=== PATIENT | male | born 1970 | race Two or more races ===

== ENCOUNTER 2025-05-16 15:12 | Inpatient (IN) | payer MEDICAID ==
[~2025-05-16] VITALS: Ht 160 cm; Wt 92.1 kg
--- NOTE | 2025-05-16 16:47 | ED.PDOC ---
History of Present Illness HPI Comments 55-year-old male presents to the ER with prior medical history of hypertension(has not taking medications for one month) chief complaint of headache. Patient reports on having a occipital portion headache associated with palpitations Denies any other symptoms at this time. Denies chills, fever, N/V/D, SOB, CP. No other associated symptoms, modifiers, recent injuries or sick contacts present at this time. Chief Complaint: Headache Time Seen by MD: 16:45 Reviewed Notes: Nurses Notes, Medications, Allergies Allergies: Coded Allergies: NO KNOWN ALLERGIES (Unverified , 05/16/25) Information Source: Patient Mode of Arrival: Ambulatory Severity: Moderate Timing: Came on: Suddenly Duration: Since onset Prehospital treatment: None Past Medical History PAST MEDICAL HISTORY: HTN (Has not taken his medications for the past month) Surgical History: Denies all surgeries Family History Family History: Reviewed,noncontributory to illness, Unknown Social History Smoker: Non-Smoker Alcohol: Denies ETOH Use Drugs: Denies Drug Use Lives In: Home Constitutional: denies: chills, diaphoresis, fatigue, fever, malaise, sweats, weakness, others EENTM: denies: blurred vision, double vision, ear bleeding, ear discharge, ear drainage, ear pain, ear ringing, eye pain, eye redness, hearing loss, mouth pain, mouth swelling, nasal discharge, nose bleeding, nose congestion, nose pain, photophobia, tearing, throat pain, throat swelling, voice changes, others Respiratory: denies: cough, hemoptysis, orthopnea, SOB at rest, shortness of breath, SOB with excertion, stridor, wheezing, others Cardiovascular: reports: palpitations; denies: chest pain, dizzy spells, diaphoresis, Dyspnea on exertion, edema, irregular heart beat, left arm pain, lightheadedness, PND, syncope, others Gastrointestinal: denies: abdomen distended, abdominal pain, blood streaked bowels, constipated, diarrhea, dysphagia, difficulty swallowing, hematemesis, melena, nausea, poor appetite, poor fluid intake, rectal bleeding, rectal pain, vomiting, others Genitourinary: denies: burning, dysuria, flank pain, frequency, hematuria, incontinence, penile discharge, penile sore, pain, testicle pain, testicle swelling, urgency, others Neurological: reports: headache; denies: dizziness, fainting, left sided numbness, left sided weakness, numbness, paresthesia, pre-existing deficit, right sided numbness, right sided weakness, seizure, speech problems, tingling, tremors, weakness, others Musculoskeletal: denies: back pain, gout, joint pain, joint swelling, muscle pain, muscle stiffness, neck pain, others Integumetry: denies: bruises, change in color, change in hair/nails, dryness, laceration, lesions, lumps, rash, wounds, others Allergic/Immunocompromised: denies: Difficulty Healing, Frequent Infections, Hives, Itching, others Hematologic/Lymphatic: denies: anemia, blood clots, easy bleeding, easy bruising, swollen glands, others Endocrine: denies: excessive hunger, excessive sweating, excessive thirst, excessive urination, flushing, intolerance to cold, intolerance to heat, unexplained weight gain, unexplained weight loss, others Psychiatric: denies: anxiety, bipolar disorder, depression, hopeless, panic disorder, schizophrenia, sleepless, suicidal, others All Other Systems: Reviewed and Negative Physical Exam Exam Comments Appears uncomfortable General Appearance: No Apparent Distress, Normal HEENT: Normal ENT Inspection, Pharynx Normal, TMs Normal Neck: Full Range of Motion, Non-Tender, Normal, Normal Inspection Respiratory: Chest Non-Tender, Lungs Clear, No Accessory Muscle Use, No Respiratory Distress, Normal Breath Sounds Cardiovascular: No Edema, No JVD, No Murmur, No Gallop, Normal Peripheral Pulses, Regular Rate/Rhythm Breast Exam: Deferred Gastrointestinal: No Organomegaly, Non Tender, No Pulsatile Mass, Normal Bowel Sounds, Soft Genitalia: Deferred Pelvic: Deferred Rectal: Deferred Extremities: No calf tenderness, Normal capillary refill, Normal inspection, Normal range of motion, Non-tender, No pedal edema Musculoskeletal : Apperance: Normal Neurologic: Alert, tools programmer II-XII nml as Tested, No Motor Deficits, Normal Affect, Normal Mood, No Sensory Deficits Cerebellar Function: Normal Reflexes: Normal Skin: Dry, Normal Color, Warm Lymphatic: No Adenopathy Was a procedure done? Was a procedure done?: No Differential Dx Considerations may include: ACS, CVA, viral syndrome, electrolyte abnormality X-Ray, Labs, Meds, VS Vital Signs Date Time Temp Pulse Resp B/P (MAP) Pulse Ox O2 Delivery O2 Flow Rate FiO2 05/16/25 18:21 172/112 05/16/25 17:25 98.0 70 20 172/112 (132) 98 98.0 05/16/25 17:25 70 20 98 Room Air 05/16/25 15:19 97.8 75 18 176/107 97 97.8 Lab Test 05/16/25 18:11 05/16/25 18:03 Range/Units White Blood Count 8.3 4.4-10.8 10^3/uL Red Blood Count 5.54 4.5-5.90 10^6/uL Hemoglobin 16.8 13.5-17.5 g/dL Hematocrit 49.1 41.0-53.0 % Mean Corpuscular Volume 88.5 80.0-100.0 fL Mean Corpuscular Hemoglobin 30.3 28.0-32.0 pg Mean Corpuscular Hemoglobin Concent 34.3 32.0-36.0 g/dL Red Cell Distribution Width 14.3 11.8-14.3 % Platelet Count 167 140-450 10^3/uL Mean Platelet Volume 9.8 6.9-10.8 fL Neutrophils (%) (Auto) 48.1 37.0-80.0 % Lymphocytes (%) (Auto) 38.2 10.0-50.0 % Monocytes (%) (Auto) 10.4 0.0-12.0 % Eosinophils (%) (Auto) 2.5 0.0-7.0 % Basophils (%) (Auto) 0.8 0.0-2.0 % Neutrophils # (Auto) 4.0 1.6-8.6 10 ^3/uL Lymphocytes # (Auto) 3.2 0.4-5.4 10 ^3/uL Monocytes # (Auto) 0.9 0-1.3 10 ^3/uL Eosinophils # (Auto) 0.2 0-0.8 10 ^3/uL Basophils # (Auto) 0.1 0-0.2 10 ^3/uL Nucleated Red Blood Cells 0.1 % Sodium Level 141 136-145 mmol/L Potassium Level 4.3 3.5-5.1 mmol/L Chloride Level 107 98-107 mmol/L Carbon Dioxide Level 27 20-31 mmol/L Anion Gap 7 5-15 Blood Urea Nitrogen 13 9-23 mg/dL Creatinine 0.77 0.700-1.30 mg/dL Glomerular Filtration Rate Calc 106 >90 mL/min BUN/Creatinine Ratio 16.9 10.0-20.0 Serum Glucose 103 74-106 mg/dL Calcium Level 9.3 8.7-10.4 mg/dL Troponin I High Sensitivity 28 </=54 ng/L B-Type Natriuretic Peptide 28.83 0-100 pg/mL Urine Color Pending Urine Clarity Pending Urine pH Pending Urine Specific [place] Pending Urine Protein Pending Urine Ketones Pending Urine Blood Pending Urine Nitrite Pending Urine Bilirubin Pending Urine Urobilinogen Pending Urine Leukocyte Esterase Pending Urine RBC Pending Urine Microscopic WBC Pending Urine Squamous Epithelial Cells Pending Urine Bacteria Pending Urine Glucose Pending Current Medications Medications (Trade) Dose Ordered Sig/Susu Route Start Time Stop Time Status Last Admin Hydralazine HCl (Apresoline Injection) 20 mg ONCE ONCE IV 05/16/25 18:00 05/16/25 18:01 DC 05/16/25 18:21 Time of 1ST Reevaluation: 17:15 Reevaluation 1ST: Unchanged Patient Education/Counseling: Diagnosis, Treatment, Prognosis Family Education/Counseling: No Family Present SEPSIS Sepsis Screen Date sepsis recognized/suspect: May 16, 2025 Time Sepsis recognized/suspect: 1521 Recent Procedure: No On Antibiotic Therapy: No Respiratory Rate >20: No Heart Rate >90: No Temp<36 C (96.8 F) or >38.3 C: No SBP <90 or MAP <65 mmHG: No New Acute Mental Status Change: No Is the patient on CPAP, BIPAP,: No Physician Orders Urinalysis (05/16/25 17:56) Chest Portable (05/16/25 17:56) Head Without Contrast (05/16/25 17:56) Electrocardigram (05/16/25 17:56) Troponin-I Hs (05/16/25 18:56) Troponin-I Hs (05/16/25 20:56) Electrocardigram (05/16/25 18:56) Electrocardigram (05/16/25 20:56) Vital Signs Date Time Temp Pulse Resp B/P (MAP) Pulse Ox O2 Delivery O2 Flow Rate FiO2 05/16/25 18:21 172/112 05/16/25 17:25 98.0 70 20 172/112 (132) 98 98.0 05/16/25 17:25 70 20 98 Room Air 05/16/25 15:19 97.8 75 18 176/107 97 97.8 Laboratory Tests Test 05/16/25 18:11 White Blood Count 8.3 10^3/uL (4.4-10.8) Medications Medications Dose Ordered Sig/Susu Route Start Time Stop Time Status Last Admin Dose Admin Hydralazine HCl 20 mg ONCE ONCE IV 05/16/25 18:00 05/16/25 18:01 DC 05/16/25 18:21 Departure 1 Departure Time of Disposition: 19:01 (Patient presented with hypertension and symptoms concerning for hypertensive emergency. Patient is receiving iv blood pressure medications requiring intensive monitoring. Data: 1. I ordered and reviewed the result of at least 3 labs including a CBC, BMP, and Urinalysis. 2. I independently interpreted the following tests: CT Brain: Which appears benign. EKG which is Normal Sinus RhythmRisk:This patient has a high risk of morbidity due to further diagnostic testing or treatment and may suffer from an acute cardiac disorder. Workup reveals hypertensive emergency and patient should be admitted for further workup. and possible expert consultation. ) Impression: Primary Impression: Hypertensive urgency Additional Impressions: Migraine Generalized weakness Disposition: ADMITTED INPATIENT Admit to: Tele Condition: Guarded Critical Care Note Critical Care Time?: No Stability Stability form required: No I personally scribed for AUDREY MARSH MD ([email or web address]) on 05/16/25 at 16:46. Electronically submitted by Yan Hardwick ([email or web address]). AUDREY MARSH MD May 16, 2025 16:46
[2025-05-16 18:19] LABS: Hematocrit 49.1 % (41.0-53.0); Hemoglobin 16.8 g/dL (13.5-17.5); Mean Corpuscular Hemoglobin 30.3 pg (28.0-32.0); Mean Corpuscular Volume 88.5 fL (80.0-100.0); Nucleated Red Blood Cells % 0.1 %
[2025-05-16] MEDS: hydrALAZINE HCL 20 MG/ML VL IV ONE (18:21)
[2025-05-16 18:28] LABS: Chloride 107 mmol/L (98-107); Potassium 4.3 mmol/L (3.5-5.1); Sodium 141 mmol/L (136-145)
[2025-05-16 18:29] LABS: Anion Gap 7 (5-15); Calcium 9.3 mg/dL (8.7-10.4); Carbon Dioxide 27 mmol/L (20-31)
[2025-05-16 18:34] LABS: BUN/Creatinine Ratio 16.9 (10.0-20.0); Blood Urea Nitrogen 13 mg/dL (9-23); Glucose 103 mg/dL (74-106)
--- NOTE | 2025-05-16 18:52 | DVH ---
PROCEDURE: CT HEAD WITHOUT CONTRAST Study Date and Requested Time: 05/16/2025 06:16 PM History: htn COMPARISON: None Dose: CTDI: 55.6 mGy DLP: 891.28 mGycm TECHNIQUE: Multiplanar images obtained through the brain without intravenous contrast. FINDINGS: Mild frontal lobe atrophy. Minimal chronic small vessel ischemic changes. No hemorrhages, masses, mass effect, midline shift, herniation or cytotoxic edema following a large vascular territory. No intra-axial or extra-axial fluid collections. No evidence of hydrocephalus. The basal cisterns are patent. 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 The pituitary gland, sella and parasellar regions are unremarkable. The cerebellar tonsils are in normal position. The cerebellum is unremarkable. The orbits and globes are unremarkable. Mild mucoperiosteal thickening of the frontal, ethmoid and maxillary sinuses. The remainder of the paranasal sinuses and mastoids are clear. There are no worrisome calvarial lesions. IMPRESSION: No evidence of acute intracranial abnormality.
[2025-05-16 19:24] LABS: Urine Protein, UAD Negative (Negative)
--- NOTE | 2025-05-16 19:27 | DVH ---
CHEST RADIOGRAPH INDICATION: htn TECHNIQUE: Single frontal view of the chest was obtained COMPARISON: None FINDINGS: Lines and Tubes: None Lungs: No focal consolidation. Pleura: No effusion. No pneumothorax. Cardiomediastinal contours: Unremarkable Bones: No acute osseous abnormality. IMPRESSION: 1. No acute cardiopulmonary disease.
[2025-05-16] MEDS: SODIUM CHLORIDE 0.9% 1,000 ML IV ONE (19:31)
[2025-05-16] MEDS: ONDANSETRON HCL 4 MG/2 ML VIAL IV PRN (21:22)
--- NOTE | 2025-05-16 22:23 | DVHHP2 ---
History of Present Illness Reason for Visit: Headache History of Present Illness 55-year-old male presents for evaluation of headache. Patient reports a two day history of having an occipital headache. He also reports developing palpitations and left-sided chest pain today. No nausea or vomiting. No shortness for breath. Patient reports being compliant with the medications for hypertension. Past Medical History Hypertension Past Surgical History Denies Family History Noncontributory Smoke: No ALCOHOL: none Drugs: None Lives: with Family Review of Systems Review of Systems Review of systems are currently negative otherwise addressed in HPI. Allergies: Coded Allergies: NO KNOWN ALLERGIES (Unverified , 05/16/25) Medications Current Medications Medications Dose Ordered Sig/Susu Route Start Time Stop Time Status Last Admin Dose Admin Clonidine HCl 0.1 mg Q6HP PRN PO 05/16/25 20:00 Ondansetron HCl 4 mg Q4HP PRN IV 05/16/25 20:00 05/16/25 21:22 4 MG Acetaminophen 650 mg Q6HP PRN PO 05/16/25 20:00 Exam Vital Signs Vital Signs Date Time Temp Pulse Resp B/P (MAP) Pulse Ox O2 Delivery O2 Flow Rate FiO2 05/16/25 21:09 97.9 80 20 158/84 (108) 99 97.9 05/16/25 17:25 Room Air Exam Gen: 55-year-old male in no apparent distress. Skin: Warm, dry, normal color and texture, no rash. HEENT: Normocephalic atraumatic, mucous membranes moist and pink. Neck: Cervical and supraclavicular nodes normal without enlargement, trachea is midline, thyroid gland is normal without masses. Pulmonary: Clear to auscultation and percussion bilaterally. Cardiac: Regular rate and rhythm. No murmur Abdomen: Soft, nontender, nondistended, bowel sounds present all 4 quadrants, no guarding, no rigidity, no organomegaly. Extremities: No cyanosis, clubbing, no edema Neuro: Cranial nerves II through XII grossly intact, normal affect and speech, no focal motor deficits. Labs/Xrays AGE / SEX: 55 / M ADM STATUS: REG ER SERVICE [id number] ORDERING PHYSICIAN: AUDREY MARSH MD PROCEDURE(s): CXRP - CHEST PORTABLE REASON: htn ORDER NUMBER(s): [id number], ACCESSION NUMBER(s): [id number] CHEST RADIOGRAPH INDICATION: htn TECHNIQUE: Single frontal view of the chest was obtained COMPARISON: None FINDINGS: Lines and Tubes: None Lungs: No focal consolidation. Pleura: No effusion. No pneumothorax. Cardiomediastinal contours: Unremarkable Bones: No acute osseous abnormality. IMPRESSION: 1. No acute cardiopulmonary disease. RING PHYSICIAN: AUDREY MARSH MD PROCEDURE(s): HWOCT - HEAD WITHOUT CONTRAST REASON: htn ORDER NUMBER(s): [id number], ACCESSION NUMBER(s): [id number] PROCEDURE: CT HEAD WITHOUT CONTRAST Study Date and Requested Time: 05/16/2025 06:16 PM History: htn COMPARISON: None Dose: CTDI: 55.6 mGy DLP: 891.28 mGycm TECHNIQUE: Multiplanar images obtained through the brain without intravenous contrast. FINDINGS: Mild frontal lobe atrophy. Minimal chronic small vessel ischemic changes. No hemorrhages, masses, mass effect, midline shift, herniation or cytotoxic ed mady following a large vascular territory. No intra-axial or extra-axial fluid collections. No evidence of hydrocephalus. The basal cisterns are patent. 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 The pituitary gland, sella and parasellar regions are unremarkable. The cerebellar tonsils are in normal position. The cerebellum is unremarkable. The orbits and globes are unremarkable. Mild mucoperiosteal thickening of the frontal, ethmoid and maxillary sinuses. The remainder of the paranasal sinuses and mastoids are clear. There are no worrisome calvarial lesions. IMPRESSION: No evidence of acute intracranial abnormality. Labs Test 05/16/25 19:03 05/16/25 18:11 05/16/25 18:03 Range/Units Troponin I High Sensitivity 28 </=54 ng/L White Blood Count 8.3 4.4-10.8 10^3/uL Red Blood Count 5.54 4.5-5.90 10^6/uL Hemoglobin 16.8 13.5-17.5 g/dL Hematocrit 49.1 41.0-53.0 % Mean Corpuscular Volume 88.5 80.0-100.0 fL Mean Corpuscular Hemoglobin 30.3 28.0-32.0 pg Mean Corpuscular Hemoglobin Concent 34.3 32.0-36.0 g/dL Red Cell Distribution Width 14.3 11.8-14.3 % Platelet Count 167 140-450 10^3/uL Mean Platelet Volume 9.8 6.9-10.8 fL Neutrophils (%) (Auto) 48.1 37.0-80.0 % Lymphocytes (%) (Auto) 38.2 10.0-50.0 % Monocytes (%) (Auto) 10.4 0.0-12.0 % Eosinophils (%) (Auto) 2.5 0.0-7.0 % Basophils (%) (Auto) 0.8 0.0-2.0 % Neutrophils # (Auto) 4.0 1.6-8.6 10 ^3/uL Lymphocytes # (Auto) 3.2 0.4-5.4 10 ^3/uL Monocytes # (Auto) 0.9 0-1.3 10 ^3/uL Eosinophils # (Auto) 0.2 0-0.8 10 ^3/uL Basophils # (Auto) 0.1 0-0.2 10 ^3/uL Nucleated Red Blood Cells 0.1 % Sodium Level 141 136-145 mmol/L Potassium Level 4.3 3.5-5.1 mmol/L Chloride Level 107 98-107 mmol/L Carbon Dioxide Level 27 20-31 mmol/L Anion Gap 7 5-15 Blood Urea Nitrogen 13 9-23 mg/dL Creatinine 0.77 0.700-1.30 mg/dL Glomerular Filtration Rate Calc 106 >90 mL/min BUN/Creatinine Ratio 16.9 10.0-20.0 Serum Glucose 103 74-106 mg/dL Calcium Level 9.3 8.7-10.4 mg/dL B-Type Natriuretic Peptide 28.83 0-100 pg/mL Urine Color Light-yellow Yellow Urine Clarity Turbid H Clear Urine pH 7.0 5.0-9.0 Urine Specific [place] 1.017 1.001-1.035 Urine Protein Negative Negative Urine Ketones Negative Negative Urine Blood Negative Negative /uL Urine Nitrite Negative Negative Urine Bilirubin Negative Negative Urine Urobilinogen Normal Negative mg/dL Urine Leukocyte Esterase Negative Negative /uL Urine RBC 1 0 - 3 /hpf Urine Microscopic WBC 1 0-3 /HPF Urine Squamous Epithelial Cells Few <5 /hpf Urine Bacteria None seen None Seen /hpf Urine Glucose Normal Normal mg/dL SEPSIS Sepsis Screen Date sepsis recognized/suspect: May 16, 2025 Time Sepsis recognized/suspect: 1521 Recent Procedure: No On Antibiotic Therapy: No Respiratory Rate >20: No Heart Rate >90: No Temp<36 C (96.8 F) or >38.3 C: No SBP <90 or MAP <65 mmHG: No New Acute Mental Status Change: No Is the patient on CPAP, BIPAP,: No Physician Orders Chest Portable (05/16/25 17:56) Head Without Contrast (05/16/25 17:56) Electrocardigram (05/16/25 17:56) Electrocardigram (05/16/25 18:56) Electrocardigram (05/16/25 20:56) Clonidine Hcl Tablet (Catapres Tablet) (05/16/25 20:00) Admit (05/16/25 19:54) Ondansetron Hcl (Zofran) (05/16/25 20:00) Cardiac Diet-2gna,Lofat,Lochol (05/17/25 Breakfast) Condition: Stable (05/16/25 19:54) Acetaminophen Tablet (Tylenol Tablet) (05/16/25 20:00) Bedrest With Bathroom Privileg (05/16/25 19:54) Losartan Tablet (Cozaar Tablet) (05/17/25 10:00) Hydrochlorothiazide Tablet (Hydrochlorot (05/17/25 10:00) Echo 2d Mode Cardiac Dop (05/16/25 22:19) Vital Signs Date Time Temp Pulse Resp B/P (MAP) Pulse Ox O2 Delivery O2 Flow Rate FiO2 05/16/25 21:09 97.9 80 20 158/84 (108) 99 97.9 05/16/25 18:21 172/112 05/16/25 17:25 98.0 70 20 172/112 (132) 98 98.0 05/16/25 17:25 70 20 98 Room Air 05/16/25 15:19 97.8 75 18 176/107 97 97.8 Laboratory Tests Test 05/16/25 18:11 White Blood Count 8.3 10^3/uL (4.4-10.8) Medications Medications Dose Ordered Sig/Susu Route Start Time Stop Time Status Last Admin Dose Admin Hydralazine HCl 20 mg ONCE ONCE IV 05/16/25 18:00 05/16/25 18:01 DC 05/16/25 18:21 20 MG Ondansetron HCl 4 mg Q4HP PRN IV 05/16/25 20:00 05/16/25 21:22 4 MG Sodium Chloride 1,000 ml @ 1,000 mls/hr Q1H ONCE IV 05/16/25 18:00 05/16/25 18:59 DC 05/16/25 19:31 1,000 MLS/HR Assessment/Plan Assessment/Plan Assessment Hypertensive crisis Plan Admit the patient to [facility] to the hospitalist As needed antihypertensives Resume home medications Continue treatment per orders. Plan discussed with: Patient My Orders Orders - GIULIANA PRESLEY Procedure Category Date Status Time Clonidine Hcl Tablet PHA 05/16/25 In Process (Catapres Tablet) 20:00 Admit ADMIT 05/16/25 Transmitted 19:54 Ondansetron Hcl PHA 05/16/25 In Process (Zofran) 20:00 Cardiac DIET 05/17/25 Transmitted Diet-2gna,Lofat,Lochol Breakfast Condition: Stable CASEY 05/16/25 In Process 19:54 Acetaminophen Tablet PHA 05/16/25 In Process (Tylenol Tablet) 20:00 Bedrest With Bathroom CASEY 05/16/25 In Process Privileg 19:54 Losartan Tablet PHA 05/17/25 Verified (Cozaar Tablet) 10:00 Hydrochlorothiazide PHA 05/17/25 Verified Tablet (Hydrochlorot 10:00 Echo 2d Mode Cardiac US 05/16/25 Verified DOP 22:19 Date of Service: May 16, 2025 Billing Provider: GIULIANA PRESLEY Common Visit Codes: [id number] INP/OBS CARE (MOD) GIULIANA PRESLEY May 16, 2025 22:23
[2025-05-16 22:45] LABS: Cholesterol 200 mg/dL (< 200); HDL Cholesterol 43 mg/dL (40-59)
[2025-05-16 22:46] LABS: Triglycerides 341 mg/dL (< 150)
[2025-05-16 23:18] VITALS: BP 145/91; PULSE 71; RESP 17; TEMP 98.1; O2SAT 96
[2025-05-16] MEDS: ACETAMINOPHEN 325 MG TAB PO PRN (23:23)
[2025-05-17] VITALS (9 sets, daily range): BP systolic 133–176; BP diastolic 91–113; PULSE 59–75; RESP 14–19; TEMP 97.7–98.3; O2SAT 96–99
[2025-05-17] MEDS ORDERED: HYDR100T10 PO (02:23)
[2025-05-17] MEDS ORDERED: LOSA-534 PO (02:23)
[2025-05-17] MEDS: LOSARTAN POTASSIUM 50 MG TAB PO SCH (09:50)
[2025-05-17] MEDS: hydroCHLOROthiazide 25 MG TAB PO SCH (09:50)
--- NOTE | 2025-05-17 12:16 | DVHPN2 ---
Progress Note Date Seen: May 17, 2025 Medical Necessity Reason Pt with a Central, PICC or Fol: No Subjective Patient reports: No new complaints Review of Systems: HEENT:Normal, CVS:Normal, RESPIRATORY:Normal, GI:Normal, :Normal, MSK:Normal, NEURO:Normal Objective vital signs Vital Sign Date Time Temp Pulse Resp B/P (MAP) Pulse Ox O2 Delivery O2 Flow Rate FiO2 05/17/25 09:50 151/103 05/17/25 08:46 98.3 75 16 97 98.3 05/17/25 08:00 Room Air* 0 21 Total Intake and Output 05/16/25 05/16/25 05/17/25 15:00 23:00 07:00 Intake Total 400 ml Balance 400 ml medications Current Medications Medications Dose Ordered Sig/Susu Route Start Time Stop Time Status Last Admin Dose Admin Clonidine HCl 0.1 mg Q6HP PRN PO 05/16/25 20:00 05/17/25 02:52 0.1 MG Ondansetron HCl 4 mg Q4HP PRN IV 05/16/25 20:00 05/16/25 21:22 4 MG Acetaminophen 650 mg Q6HP PRN PO 05/16/25 20:00 05/16/25 23:23 650 MG Losartan Potassium 50 mg DAILY PO 05/17/25 10:00 05/17/25 09:50 50 MG Hydrochlorothiazide 12.5 mg DAILY PO 05/17/25 10:00 05/17/25 09:50 12.5 MG Examination: GENERAL:Normal, HEENT:Normal, NECK:Normal, LUNGS:Normal, CVS:Normal, ABDOMEN:Normal, MSK:Normal, SKIN:Normal, NEURO:Normal, :Normal laboratory and microbiology Laboratory Tests 05/16/25 18:11 Test 05/16/25 18:11 Range/Units Serum Glucose 103 74-106 mg/dL Problem List/Assessment/Plan Problem List/Assessment/Plan #1 hypertensive urgency: add nifedipine #2 hyperlipidemia: add lipitor #3 obesity advance care planning- full code- time spent 18 mins Plan discussed with: Patient My Orders My Orders Orders - GIULIANA ROSARIO MD Procedure Category Date Status Time Losartan Tablet PHA 05/18/25 Transmitted (Cozaar Tablet) 10:00 Losartan Tablet PHA 05/17/25 Transmitted (Cozaar Tablet) 12:15 Nifedipine Er PHA 05/17/25 Transmitted (Procardia Xl 12:15 Nifedipine Er PHA 05/18/25 Transmitted (Procardia Xl 10:00 Atorvastatin (Lipitor) PHA 05/17/25 Transmitted 22:00 Date of Service: May 17, 2025 Billing Provider: GIULIANA ROSARIO MD Common Visit Codes: [id number] INP/OBS CARE(HIGH) Secondary Visit Codes: [id number] CARE PLAN 30 MINUTES GIULIANA ROSARIO MD May 17, 2025 12:16
[2025-05-17] MEDS: LOSARTAN POTASSIUM 50 MG TAB PO ONE (12:56)
--- NOTE | 2025-05-17 13:04 | DVHSR ---
APPROVED REPORT EXAM: Two-dimensional and M-mode echocardiogram with Doppler and color Doppler. Blood Pressure: 162/98 mmHg INDICATION Chest Pain RISK FACTORS Height: 5'3, Weight: 203 DIMENSIONS LVDd 5.1 (3.8-5.7cm) LA (2D) 4.0 (1.9-4.0cm) Aortic Root 2.7 (2.0-3.7cm) LVDs 3.6 (2.5-4.0cm) LA (MM) (1.9-4.0cm) Aortic Cusp Exc 1.8 (1.5-2.0cm) EF (%) 56.0 (55-70%) Rt. Atrium 4.1 (1.9-4.0cm) Asc. Aorta 3.4 cm IVSd 1.0 (0.7-1.1cm) RV (D) (1.8-2.4cm) PWd 1.3 (0.7-1.1cm) Mitral Valve Mitral Mitral Stenosis E wave 0.76m/s MV Mean GR. mmHg A wave 0.53m/s MV Peak GR. mmHg E/A ratio 1.4 2D MVA cm2 DECEL Time 185ms PRESS 1/2 Time ms Aortic Valve Aortic Valve Aortic Stenosis V1 0.94m/s AO Mean GR. 2mmHg V2 1.02m/s AO Peak GR. 4mmHg LVOT Diameter 2.2 (1.8-2.4cm) Doppler DARREN 3.50cm2 Pulmonic Valve V2 1.11m/s Conclusion lvef 55% MILD lvh left atrium enlarged mild mild mitral regurg
[2025-05-17] MEDS: ATORVASTATIN 20 MG TAB PO SCH (21:57)
[2025-05-18 00:32] VITALS: BP 120/81; PULSE 83; RESP 17; TEMP 98.2; O2SAT 98
[2025-05-18 04:31] VITALS: BP 121/85; PULSE 78; RESP 19; TEMP 98.6; O2SAT 99
[2025-05-18 08:00] VITALS: PULSE 69; RESP 16; O2SAT 96
[2025-05-18 09:00] VITALS: BP 131/90; PULSE 69; RESP 18; TEMP 98.1; O2SAT 96
[2025-05-18] MEDS ORDERED: LOSARTAN POTASSIUM 50 MG TAB PO SCH (10:00)
[2025-05-18] MEDS ORDERED: ATOR-507 PO (11:05)
[2025-05-18] MEDS ORDERED: HYDR12.59 PO (11:05)
[2025-05-18] MEDS ORDERED: LOSA-534 PO (11:05)
[2025-05-18] MEDS ORDERED: NIFE1TAB36 PO (11:05)
--- NOTE | 2025-05-18 11:15 | DVHDS2 ---
Discharge Summary Date of Admission May 16, 2025 at 19:54 Date of Discharge: May 18, 2025 Labs/Diagnostic Data: Laboratory Results Test 05/16/25 19:03 05/16/25 18:11 05/16/25 18:03 Troponin I High Sensitivity 28 ng/L (</=54) Triglycerides Level 341 mg/dL (< 150) Cholesterol Level 200 mg/dL (< 200) LDL Cholesterol 131 mg/dL (< 100) HDL Cholesterol 43 mg/dL (40-59) Thyroid Stimulating Hormone (TSH) 3.00 uIU/mL (0.55-4.78) White Blood Count 8.3 10^3/uL (4.4-10.8) Red Blood Count 5.54 10^6/uL (4.5-5.90) Hemoglobin 16.8 g/dL (13.5-17.5) Hematocrit 49.1 % (41.0-53.0) Mean Corpuscular Volume 88.5 fL (80.0-100.0) Mean Corpuscular Hemoglobin 30.3 pg (28.0-32.0) Mean Corpuscular Hemoglobin Concent 34.3 g/dL (32.0-36.0) Red Cell Distribution Width 14.3 % (11.8-14.3) Platelet Count 167 10^3/uL (140-450) Mean Platelet Volume 9.8 fL (6.9-10.8) Neutrophils (%) (Auto) 48.1 % (37.0-80.0) Lymphocytes (%) (Auto) 38.2 % (10.0-50.0) Monocytes (%) (Auto) 10.4 % (0.0-12.0) Eosinophils (%) (Auto) 2.5 % (0.0-7.0) Basophils (%) (Auto) 0.8 % (0.0-2.0) Neutrophils # (Auto) 4.0 10 ^3/uL (1.6-8.6) Lymphocytes # (Auto) 3.2 10 ^3/uL (0.4-5.4) Monocytes # (Auto) 0.9 10 ^3/uL (0-1.3) Eosinophils # (Auto) 0.2 10 ^3/uL (0-0.8) Basophils # (Auto) 0.1 10 ^3/uL (0-0.2) Nucleated Red Blood Cells 0.1 % Sodium Level 141 mmol/L (136-145) Potassium Level 4.3 mmol/L (3.5-5.1) Chloride Level 107 mmol/L (98-107) Carbon Dioxide Level 27 mmol/L (20-31) Anion Gap 7 (5-15) Blood Urea Nitrogen 13 mg/dL (9-23) Creatinine 0.77 mg/dL (0.700-1.30) Glomerular Filtration Rate Calc 106 mL/min (>90) BUN/Creatinine Ratio 16.9 (10.0-20.0) Serum Glucose 103 mg/dL (74-106) Calcium Level 9.3 mg/dL (8.7-10.4) B-Type Natriuretic Peptide 28.83 pg/mL (0-100) Urine Color Light-yellow (Yellow) Urine Clarity Turbid (Clear) Urine pH 7.0 (5.0-9.0) Urine Specific Eek 1.017 (1.001-1.035) Urine Protein Negative (Negative) Urine Ketones Negative (Negative) Urine Blood Negative /uL (Negative) Urine Nitrite Negative (Negative) Urine Bilirubin Negative (Negative) Urine Urobilinogen Normal mg/dL (Negative) Urine Leukocyte Esterase Negative /uL (Negative) Urine RBC 1 /hpf (0 - 3) Urine Microscopic WBC 1 /HPF (0-3) Urine Squamous Epithelial Cells Few /hpf (<5) Urine Bacteria None seen /hpf (None Seen) Urine Glucose Normal mg/dL (Normal) Other Laboratory Tests 05/16/25 18:11 Brief Hx & Hospital Course: see dictated note Condition at Discharge: Fair Final Diagnosis/Problems List HTN Discharge Disposition: Home Discharge Instruct/Medications Diet: Cardiac 2g Na,low cholest Activity: No Restrictions, As Tolerated Follow Up/Referral: FU WITH PCP IN 1 WK Medications: RESUME HOME MEDS EXCEPT CHANGE IN [place] DOSE NEW SCRIPT TO PHARMACY Scheduled Atorvastatin Calcium (Lipitor), 40 MG PO QPM Hydralazine Hcl (Hydralazine Hcl), 1 TAB PO TID, (Reported) Hydrochlorothiazide (Hydrochlorothiazide), 12.5 MG PO QAM Losartan Potassium (Losartan Potassium), 1 TAB PO DAILY, (Reported) Losartan Potassium (Losartan Potassium), 50 MG PO DAILY Nifedipine (Nifedipine ER), 30 MG PO DAILY Discharge Statement: "Patient was advised to return to the ER or call 911 if any headaches, dizziness, shortness of breath, chest pain, abdominal pain, bleeding, fevers, or worsening of medical condition. Patient was counseled about treatment plan, medications, possible side effects, patientverbalized understanding. All questions were answered to the best of my ability. This discharge took greater then 30 minutes in planning, reviewing documentation, counseling the patient, and discussing with other team members." ASSESSMENT ASSESSMENT Assessment HTN Date of Service: May 18, 2025 Billing Provider: GIULIANA ROSARIO MD Common Visit Codes: 00249-LZF/OBS DISCH DAY >30min GIULIANA ROSARIO MD May 18, 2025 11:15
[2025-05-18 13:00] VITALS: BP 140/95; PULSE 60; RESP 18; TEMP 98.6; O2SAT 96
[2025-05-18 14:56] VITALS: BP 147/95; TEMP 36.7
--- NOTE | 2025-05-19 05:11 | DVHDS ---
DATE OF DISCHARGE: 05/18/2025 HISTORY OF PRESENT ILLNESS: The patient is a 55-year-old gentleman, who was admitted with history of headache in the occipital area and has history of hypertension. HOSPITAL COURSE: The patient's blood pressure was noted to be elevated at 172/112. The patient had a CT of head that showed no acute abnormality. The patient had an echocardiogram done that showed an ejection fraction of 55%. The patient's blood pressure is now improved and he will be discharged home to be on hydrochlorothiazide 12.5 mg daily, losartan 50 mg daily, nifedipine XL 30 mg daily, and Lipitor 40 mg at bedtime. The patient's triglyceride levels were at 300 with an LDL of 131. FINAL DIAGNOSES: * Hypertensive urgency. * Hyperlipidemia. * Obesity. ____. Family at bedside was 39 minutes. I also gave the son a copy of his echo report. MD BHARATH Watson/PARRIS TID: [id number] RECEIPT: [id number]
== END 2025-05-18 15:45 | disposition home or self-care (01) | DRG 199 ==
LOC: ER 15:12 → OVERFLOW 19:54 → WEST WING 19:59
PROVIDERS: ADMIT Internal Medicine; ATTEND Internal Medicine
DX: I16.0 Hypertensive urgency (principal); E66.9 Obesity, unspecified; I10 Essential (primary) hypertension; E78.5 Hyperlipidemia, unspecified; G43.909 Migraine, unspecified, not intractable, without status migrainosus; Z79.899 Other long term (current) drug therapy; Z68.36 Body mass index [BMI] 36.0-36.9, adult
CPT/HCPCS: 36415; 70450; 71045; 80048; 80061; 81001; 83880; 84443; 84484; 85025; 93306; 96361; 96374; G0378; J2405